=== PATIENT | female | born 1950 | race Two or more races ===

== ENCOUNTER 2020-07-01 13:08 | Outpatient (CLI) | payer OTHER ==
[2020-07-02] MEDS ORDERED: FORTAMET500 MG PO (08:17)
[2020-07-02] MEDS ORDERED: SYNTHROID88 MCG PO (08:17)
[2020-07-02] MEDS ORDERED: OMEPRAZOLE PO (08:18)
[2020-07-02] MEDS ORDERED: ZOLOFT50 MG PO (08:20)
[2020-07-02] MEDS ORDERED: VITAMIN D31 ML PO (08:20)
[2020-07-02] MEDS ORDERED: ROSUVASTATIN PO (08:43)
== END 2020-07-01 13:19 | disposition home or self-care (01) ==
LOC: RAD 13:08
PROVIDERS: ATTEND Orthopaedic Surgery
DX: M25.572 Pain in left ankle and joints of left foot (principal); M79.672 Pain in left foot

== ENCOUNTER 2020-07-05 06:34 | Day surgery (SDC) | payer OTHER ==
[~2020-07-05 06:34] MED LIST: FORTAMET500 MG PO; OMEPRAZOLE PO; ROSUVASTATIN PO; SYNTHROID88 MCG PO; VITAMIN D31 ML PO; ZOLOFT50 MG PO
== END 2020-07-05 16:10 | disposition home or self-care (01) ==
LOC: CIR.AMB 06:34
PROVIDERS: ATTEND Orthopaedic Surgery
DX: S82.62XA Displaced fracture of lateral malleolus of left fibula, initial encounter for closed fracture (principal); S82.432A Displaced oblique fracture of shaft of left fibula, initial encounter for closed fracture; Z20.828 Contact with and (suspected) exposure to other viral communicable diseases
CPT/HCPCS: 20902; 27792; C1776

== ENCOUNTER 2020-08-27 11:37 | Outpatient (CLI) | payer OTHER | END 2020-08-27 11:47 | disposition home or self-care (01) | LOC: RAD 11:37 | PROVIDERS: ATTEND Orthopaedic Surgery | DX: M77.32 Calcaneal spur, left foot (principal); S82.62XA Displaced fracture of lateral malleolus of left fibula, initial encounter for closed fracture; S93.432A Sprain of tibiofibular ligament of left ankle, initial encounter ==

== ENCOUNTER 2020-09-06 08:03 | Day surgery (SDC) | payer OTHER | END 2020-09-06 15:15 | disposition home or self-care (01) | LOC: CIR.AMB 08:03 | PROVIDERS: ATTEND Orthopaedic Surgery | DX: T84.84XA Pain due to internal orthopedic prosthetic devices, implants and grafts, initial encounter (principal); S93.432D Sprain of tibiofibular ligament of left ankle, subsequent encounter; Z20.828 Contact with and (suspected) exposure to other viral communicable diseases ==

== ENCOUNTER 2021-01-25 10:46 | Outpatient (CLI) | payer OTHER | END 2021-01-25 15:00 | disposition home or self-care (01) | LOC: LAB 10:46 | PROVIDERS: ATTEND Orthopaedic Surgery | DX: E83.42 Hypomagnesemia (principal); M85.89 Other specified disorders of bone density and structure, multiple sites; M81.8 Other osteoporosis without current pathological fracture; E56.1 Deficiency of vitamin K ==